=== PATIENT | female | born 1990 | race Two or more races ===

== ENCOUNTER 2024-03-19 04:27 | Emergency (ER) | payer MEDICAID, SELFPAY ==
[2024-03-19 04:28] VITALS: BMI 38.0
[2024-03-19 04:33] VITALS: BP 125/84; PULSE 81; RESP 19; TEMP 36.8; O2SAT 99
--- NOTE | 2024-03-19 04:45 | XR_ITS ---
Examination: Abdomen sonogram, Limited Date and time of exam: March 19, 2024 0536 hrs. Indications: Right upper abdominal pain beginning 3 days ago Technique: Real-time aguirre scale transabdominal sonographic images of the upper abdomen obtained. Findings: 12 mm gallbladder sludge ball Gallbladder wall 0.37 cm Common bile duct 0.2 cm Pancreatic head 2.8 cm Liver 16.2 cm fatty infiltration no focal liver lesions Normal hepatopedal portal venous flow Patent IVC Impression: Negative for cholelithiasis, 12 mm gallbladder sludge ball is present Borderline thickening gallbladder wall 0.37 cm, clinical correlation advised, consider HIDA scan or MRCP follow-up
--- NOTE | 2024-03-19 04:46 | PD.EDRME ---
Rapid Medical Screening Exam PENDING SALE TO [facility] Arrival date/time: 03/19/24 04:27 33F with no significant PMH presents to ED with 3 days of RUQ/epigastric pain that is possibly burning in nature. Chief Complaint: Abdominal Pain Vital signs: Vital Signs Temperature 98.2 F 03/19/24 04:33 Pulse Rate 81 03/19/24 04:33 Respiratory Rate 19 03/19/24 04:33 Blood Pressure 125/84 03/19/24 04:33 Pulse Oximetry (%) 99 03/19/24 04:33 Oxygen Delivery Method Room Air 03/19/24 04:33
[2024-03-19] MEDS: MG HYD/AL HYD/SIME (Maalox Reg) SUSP 30 ML UDC PO (04:54)
[2024-03-19] MEDS: FAMOTIDINE 20 MG TABLET 40 MG PO (04:54)
[2024-03-19 04:56] LABS: HCG Qualitative,Urine Negative
[2024-03-19 05:15] LABS: Basophils % (Auto) 0 % (0-2.5); Eosinophils # (Auto) 0.2 Thou/mm3 (0.0-0.5); Eosinophils % (Auto) 2 % (0-10); Hematocrit 41.3 % (36.0-46.0); Hemoglobin 13.6 g/dL (12.0-16.0); Immature Granulocytes % (Auto) 0 % (0-0); Immature Granulocytes Auto 0.01 Thou/mm3 (0.00-0.00); Lymphocytes % (Auto) 22 % (10-50); Mean Corpuscular HGB Conc 32.9 g/dl (31.0-37.0); Mean Corpuscular Hemoglobin 27.4 pg (25.0-35.0); Mean Corpuscular Volume 83 fL (80-100); Monocytes # (Auto) 0.6 Thou/mm3 (0.0-0.8); Monocytes % (Auto) 6 % (0-12); Neutrophils # (Auto) 6.2 Thou/mm3 (1.8-7.7); Neutrophils % (Auto) 70 % (37-80); Nucleated Red Blood Cell % 0 /100 WBC (0); Platelet Count 423 Thou/mm3 (140-440); RDW Standard Deviation 39.5 fL (36.4-46.3); Red Blood Count 4.96 Miln/mm3 (4.00-5.20)
[2024-03-19 05:29] LABS: Alanine Aminotransferase 24 U/L (10-49); Albumin, Serum 4.5 gm/dL (3.5-5.0); Albumin/Globulin Ratio 1.5 (1.2-2.2); Alkaline Phosphatase 73 U/L (46-116); Anion Gap 7 (7-16); Aspartate Amino Transferase 20 U/L (0-34); BUN/Creatinine Ratio 11 Ratio (12-20); Bilirubin,Total 0.3 mg/dL (0.3-1.2); Blood Urea Nitrogen 9 mg/dL (9-23); Calcium 9.3 mg/dL (8.3-10.6); Calcium (Corrected) 9.3 mg/dL (8.5-10.1); Carbon Dioxide 26.1 mMol/L (20.0-31.0); Chloride 102 mMol/L (98-107); Creatinine (Component) 0.8 mg/dL (0.6-1.3); Estimated Creatinine Clearance 113.3 mL/min (>60); Globulin 3.1 gm/dL (2.3-3.5); Glucose 140 mg/dL (74-106); Lipase 45 U/L (12-53); Osmolality,Calculated 270 (275-295); Potassium 3.8 mMol/L (3.4-5.1); Sodium 135 mMol/L (136-145); Total Protein 7.6 gm/dL (5.7-8.2); eGFR > 60 See Note
--- NOTE | 2024-03-19 07:16 | PC.NURSE ---
Pt. asked if US results were in yet and informed pt. no report yet at this time.
--- NOTE | 2024-03-19 07:32 | PD.EDABDPN ---
ED Abdominal Pain RME/HPI General Chief Complaint: Abdominal Pain Stated complaint: UPPER ABDOMINAL PAIN Time seen by provider: 03/19/24 07:07 Arrival date/time: 03/19/24 04:27 33-year-old female approximately 5 months presents the emergency department complains of epigastric abdominal pain patient reports no fever nausea or vomiting Limitations: no limitations RME / HPI RME / HPI narrative: 03/19/24 04:27 33F with no significant PMH presents to ED with 3 days of RUQ/epigastric pain that is possibly burning in nature. Related Data Home Medications ?Medication ?Instructions ?Recorded ?Confirmed vitamins-iron fumarate 27 1 tab PO QDAY 06/15/19 08/29/23 mg iron-folic acid 0.8 mg tablet ( Vitamin) Previous Rx's ?Medication ?Instructions ?Recorded ibuprofen 800 mg tablet 800 mg PO TID PRN pain #30 tabs 03/19/24 metoclopramide HCl 10 mg tablet 10 mg PO Q6H PRN nausea and 03/19/24 (Reglan) vomiting #30 tabs Allergies Allergy/AdvReac Type Severity Reaction Status Date / Time No Known Allergies Allergy Verified 08/29/23 19:08 Review of Systems Review of Systems Systems Reviewed: All systems reviewed, normal except as documented Constitutional Constitutional: Reports system reviewed and no additional complaints, except as documented, Denies fever(s) and Denies headache(s) Eyes Eyes: Reports system reviewed and no additional complaints, except as documented and Denies blurry vision ENT Ears, Nose, Mouth, and Throat: Reports system reviewed and no additional complaints, except as documented, Denies headache(s), Denies nasal congestion and Denies nasal discharge Cardiovascular Cardiovascular: Reports system reviewed and no additional complaints, except as documented, Denies chest pain and Denies dyspnea Respiratory Respiratory: Reports system reviewed and no additional complaints, except as documented, Denies chest congestion, Denies cough and Denies dyspnea Gastrointestinal Gastrointestinal: Reports system reviewed and no additional complaints, except as documented, Reports abdominal pain, Denies nausea and Denies vomiting Integumentary/Breasts Skin/Breast: Reports system reviewed and no additional complaints, except as documented and Denies rash Neurologic Neurologic: Reports system reviewed and no additional complaints, except as documented, Reports as per HPI and Denies headache(s) Past Medical History Past Medical History NEUROLOGIC: Negative Neurological Disorders CARDIAC: Negative Cardiac Disorders or Congestive Heart Failure RESPIRATORY: Negative Chronic Obstructive Pulmonary Disease (COPD) GASTROINTESTINAL: Negative Gastrointestinal Disorders, Hepatitis or Colorectal Cancer GENITOURINARY: Negative Genitourinary Disorders, Renal Disease or Prostate Cancer REPRODUCTIVE: Negative Breast Cancer or Testicular Cancer MUSCULOSKELETAL: Negative Musculoskeletal Disorders or Bone Cancer ENDOCRINE: Negative Endocrine Disorders, Diabetes Mellitus Type 1 or Diabetes Mellitus Type 2 HEMATOLOGIC: Negative Blood Disorders OTHER HISTORY: Negative Hospitalization, Autoimmune Disease, Down Syndrome, Developmental Delay, Shingles, Falls, Blood Transfusions, Blood Transfusion Reaction, Anesthesia Reactions, Organ Transplant, Chemotherapy, Radiation Therapy, Hyperbaric Therapy, MRSA, VRSA, Vancomycin-Resistant Enterococci, Human Immunodeficiency Virus (HIV), Chicken Pox, Measles, Mumps, Rubella (Malaysian Measles), Pertussis, Clostridium Difficile, Cancer, Breast Cancer, Cervical Cancer, Colorectal Cancer, Lung Cancer, Ovarian Cancer, Prostate Cancer or Testicular Cancer Family History FAMILY HISTORY: Positive Family Cardiac Disorders (mother and father high blood pressure); Negative Family Psychiatric Problems, Family Respiratory Disorders, Family Gastrointestinal Problems, Family Cancer, Family Surgery or Family Anesthesia Reaction Surgical History SURGICAL: Negative Section or Organ Transplant Social History SMOKING STATUS: Never smoker ED Exam General Limitations: Present no limitations General appearance: Present alert and in no apparent distress Head Head exam: Present atraumatic Eye Eye exam: Present normal appearance, PERRL and EOMI; Absent conjunctival injection ENT ENT exam: Present normal exam, normal oropharynx and mucous membranes moist Neck Neck exam: Present normal inspection, full ROM and trachea midline Chest Chest inspection: Present normal inspection and symmetric chest wall rise Respiratory Respiratory exam: Present normal lung sounds bilaterally; Absent respiratory distress Cardiovascular Cardiovascular exam: Present regular rate, normal rhythm and normal heart sounds Abdominal Exam Abdominal exam: Present soft, tenderness and normal bowel sounds; Absent distention, guarding, rebound, rigidity or Victor's sign Abdominal tenderness: Present epigastrium and mild; Absent RUQ Extremities Exam Extremities exam: Present normal inspection and full ROM Back Exam Back exam: Present normal inspection and full ROM Neurological Exam Neurological exam: Present alert, oriented X3 and CN II-XII intact Psychiatric Psychiatric exam: Present normal affect and normal mood Skin Skin exam: Present warm, dry, intact and normal color Course Quality Measures none Orders Category Date Time Status US gall bladder Stat Exams 03/19/24 04:45 Completed CBC Stat Lab 03/19/24 04:55 Completed CMP [Comprehensive Metabolic Panel] Stat Lab 03/19/24 04:55 Completed HCG Qualitative,Urine Stat Lab 03/19/24 04:50 Completed Lipase Stat Lab 03/19/24 04:55 Completed Famotidine [Pepcid] Med 03/19/24 04:45 Discontinued 40 mg PO X1 ONE mg Hyd/Al Hyd/Karlos Susp [Maalox Susp] Med 03/19/24 04:45 Discontinued 30 ml PO X1 ONE Vital Signs Vital signs: Vital Signs Temperature 98.2 F 03/19/24 04:33 Pulse Rate 81 03/19/24 04:33 Respiratory Rate 19 03/19/24 04:33 Blood Pressure 125/84 03/19/24 04:33 Pulse Oximetry (%) 99 03/19/24 04:33 Oxygen Delivery Method Room Air 03/19/24 04:33 O2 saturation 99% room air within normal limits Abdominal Pain MDM MDM Narrative MDM Narrative:: 33-year-old female approximately 5 months presents the emergency department complains of epigastric abdominal pain patient reports no fever nausea or vomiting On exam patient well-appearing patient does not appear ill or toxic patient does have tenderness in epigastrium and mild right upper quadrant on palpation Lab work as well as ultrasound obtained Lab work unremarkable ultrasound Findings: 12 mm gallbladder sludge ball Gallbladder wall 0.37 cm Common bile duct 0.2 cm Pancreatic head 2.8 cm Liver 16.2 cm fatty infiltration no focal liver lesions Normal hepatopedal portal venous flow Patent IVC Impression: Negative for cholelithiasis, 12 mm gallbladder sludge ball is present Borderline thickening gallbladder wall 0.37 cm, clinical correlation advised, consider HIDA scan or MRCP follow-up Discussed findings with my attending physician as the patient has no white count symptoms are mild patient has no vomiting liver enzymes are normal patient be discharged home to follow-up on an outpatient basis for referral to general surgeon Patient is aware that if her symptoms persist or worsen to return for further evaluation and treatment Patient data External records reviewed:: [facility] previous records Clinical information provided by:: patient Social determinants that could affect healthcare access:: none Patient has the following chronic illnesses:: None How is presenting disease/condition affected by chronic disease/condition?: no chronic disease Evaluation data The following diagnostics were reviewed and interpreted by me:: lab results and radiology exam(s) Lab and/or radiology exams considered but not ordered:: Labs radiology obtained Interpretation Summary: Reviewed by me Medications / Prescriptions Medications or Prescriptions considered but not ordered:: Given Medication administrations:: Medication Administration History Discontinued Medications Al Hydrox/Mg Hydrox/Simethicone (Mg Hyd/Al Hyd/Karlos (Maalox Reg) Susp 30 Ml Udc) 30 ml PO X1 ONE Stop: 03/19/24 04:46 Last Admin: 03/19/24 04:54 Dose: 30 ml Documented By: SE Famotidine (Famotidine 20 Mg Tablet) 40 mg PO X1 ONE Stop: 03/19/24 04:46 Last Admin: 03/19/24 04:54 Dose: 40 mg Documented By: SE Given Consultations Consultation(s) initiated? (list below): No Diagnosis Differential diagnosis abdominal pain: abdominal pain, calculus of kidney, diverticulitis, endometriosis, gastroenteritis, pancreatitis and small bowel obstruction Most likely diagnosis given after review of the tests above:: Abdominal pain Admission Indicated Admission indicated?: not indicated Admission Request Was there a request for admission?: No Disposition Plan Disposition Plan: Discharge Discharge Attestation Discharge Attestation: The patient and all family members were given an opportunity to ask questions and understood the discharge instructions. Discharge instructions specifically effects, indications for sooner follow up or return to the emergency department, and the expected course of current diagnosis. Patient condition: Stable Discharge Plan Plan Patient Disposition: HOME (Self Care) Disposition Comment: Stable Prescriptions/Referrals Prescriptions/Med Rec: New ibuprofen 800 mg tablet 800 mg PO TID PRN (Reason: pain) Qty: 30 0RF metoclopramide HCl [Reglan] 10 mg tablet 10 mg PO Q6H PRN (Reason: nausea and vomiting) Qty: 30 0RF No Action Vitamin 27 mg iron- 0.8 mg Tablet 1 tab PO QDAY Referrals: Tee Mena MD [Primary Care Provider] - In 1 week Problem List Clinical Impression: Gallbladder sludge, Abdominal pain Patient/Caregiver Discharge Instructions Education Materials: Abdominal Pain Additional Instructions: Please follow up with your primary care doctor in the next 24-48hrs in order get a referral to general surgeon for any worsening symptoms return here immediately Print Language: East Timorese Stand Alone Forms: Skye Award Info., Patient Portal Info Letter MD Attestation Attestation The patient was seen by the midlevel practitioner. I, the co-signing physician, was present during the entire ER visit. While I did not physically examine the patient, I was available for consultation as needed.
[2024-03-19 07:36] VITALS: BP 122/87; PULSE 82; RESP 18; TEMP 37; O2SAT 98
== END 2024-03-19 07:48 | disposition home or self-care (01) ==
PROVIDERS: Physician Assistant; Emergency Provider Emergency Medicine; PCP Family Medicine
DX: K82.8 Other specified diseases of gallbladder (principal)
CPT/HCPCS: 36415; 76705; 80053; 81025; 83690; 85025; 99284; A9270

== ENCOUNTER 2024-03-31 19:19 | Emergency (ER) | payer MEDICAID, SELFPAY ==
[2024-03-31 19:19] VITALS: BMI 35.4
[2024-03-31 20:03] VITALS: BP 130/81; PULSE 74; RESP 18; TEMP 37.1; O2SAT 97
--- NOTE | 2024-03-31 20:09 | PD.EDRME ---
Rapid Medical Screening Exam RME Arrival date/time: 03/31/24 19:19 33-year-old female past medical history of gallstones presents emergency department complaining of right upper quadrant abdominal pain with nausea and vomiting that started earlier today. Chief Complaint: Abdominal Pain Time Seen by Provider: 03/31/24 20:05 Vital signs: Vital Signs Temperature 98.7 F 03/31/24 20:03 Pulse Rate 74 03/31/24 20:03 Respiratory Rate 18 03/31/24 20:03 Blood Pressure 130/81 03/31/24 20:03 Pulse Oximetry (%) 97 03/31/24 20:03 Oxygen Delivery Method Room Air 03/31/24 20:03 Vital signs reviewed by provider: Yes
[2024-03-31] MEDS: FAMOTIDINE 20 MG TABLET 40 MG PO (20:13)
[2024-03-31] MEDS: MG HYD/AL HYD/SIME (Maalox Reg) SUSP 30 ML UDC PO (20:14)
[2024-03-31 20:31] LABS: Basophils % (Auto) 0 % (0-2.5); Eosinophils % (Auto) 0 % (0-10); Hemoglobin 13.6 g/dL (12.0-16.0); Immature Granulocytes % (Auto) 0 % (0-0); Immature Granulocytes Auto 0.03 Thou/mm3 (0.00-0.00); Lymphocytes % (Auto) 7 % (10-50); Mean Corpuscular HGB Conc 33.2 g/dl (31.0-37.0); Mean Corpuscular Hemoglobin 27.4 pg (25.0-35.0); Mean Corpuscular Volume 83 fL (80-100); Monocytes # (Auto) 0.6 Thou/mm3 (0.0-0.8); Monocytes % (Auto) 4 % (0-12); Neutrophils % (Auto) 88 % (37-80); Nucleated Red Blood Cell % 0 /100 WBC (0); Platelet Count 401 Thou/mm3 (140-440); RDW Standard Deviation 39.8 fL (36.4-46.3); Red Blood Count 4.96 Miln/mm3 (4.00-5.20); White Blood Count 14.7 Thou/mm3 (3.6-11.0)
[2024-03-31 20:38] LABS: HCG,Qualitative Serum Negative
[2024-03-31 20:47] LABS: Alanine Aminotransferase 136 U/L (10-49); Albumin, Serum 4.6 gm/dL (3.5-5.0); Albumin/Globulin Ratio 1.5 (1.2-2.2); Alkaline Phosphatase 108 U/L (46-116); Anion Gap 8 (7-16); Aspartate Amino Transferase 243 U/L (0-34); BUN/Creatinine Ratio 11 Ratio (12-20); Bilirubin,Total 0.7 mg/dL (0.3-1.2); Blood Urea Nitrogen 8 mg/dL (9-23); Calcium 9.3 mg/dL (8.3-10.6); Calcium (Corrected) 9.3 mg/dL (8.5-10.1); Carbon Dioxide 26.2 mMol/L (20.0-31.0); Chloride 101 mMol/L (98-107); Creatinine (Component) 0.7 mg/dL (0.6-1.3); Estimated Creatinine Clearance 124.5 mL/min (>60); Glucose 140 mg/dL (74-106); Lipase 29 U/L (12-53); Osmolality,Calculated 270 (275-295); Sodium 135 mMol/L (136-145); Total Protein 7.6 gm/dL (5.7-8.2); eGFR > 60 See Note
--- NOTE | 2024-03-31 20:50 | XR_ITS ---
Examination: Abdomen sonogram, Limited Date and time of exam: March 31, 2024 2056 hrs. Indications: Onset right upper abdominal pain nausea vomiting today Technique: Real-time aguirre scale transabdominal sonographic images of the upper abdomen obtained. Findings: Gallbladder sludge ball No gallstones Gallbladder wall 0.3 cm no edema Common bile duct 0.4 cm Pancreas obscured by bowel gas Liver 17.7 cm lobular contour fatty infiltration No focal liver lesions Normal hepatopedal portal venous flow Patent IVC Impression: Gallbladder sludge ball, negative for cholelithiasis, negative for cholecystitis Mild hepatomegaly fatty liver, primary hepatocellular disease versus cirrhosis
[2024-03-31 20:53] LABS: Collection Type, Urine Clean Catch
[2024-03-31 21:03] LABS: Bacteria,Urine Rare; Bilirubin,Urine Negative (Negative); Blood,Urine Negative (Negative); Clarity,Urine Clear (Clear/Hazy); Color,Urine Yellow (Lt Yel-Yel); Culture Indicated,Urine Not Indicated; Glucose, Urine Negative (Negative); Ketones,Urine Negative (Negative); Leukocyte Esterase,Urine Positive (Negative); Nitrite,Urine Negative (Negative); Protein,Urine Negative (Neg - Trace); RBC,Urine 1 /hpf (0-3); Squamous Epithelial Cell,Urine 2 /hpf (0-5); Urobilinogen,Urine Negative mg/dL (0.0-1.0); WBC,Urine 4 /hpf (0-5)
--- NOTE | 2024-03-31 22:40 | EDNOTE_ITS ---
ED Abdominal Pain RME/HPI General Chief Complaint: Abdominal Pain Stated complaint: GALLBLADDER PAIN Time seen by provider: 03/31/24 20:05 Arrival date/time: 03/31/24 19:19 33-year-old female past medical history of gallstones presents emergency department complaining of right upper quadrant abdominal pain with nausea and vomiting that started earlier today. Patient denies any fever, chills, diarrhea, or any other associated symptom. Source: patient Mode of arrival: ambulatory Limitations: no limitations RME / HPI RME / HPI narrative: 03/31/24 19:19 33-year-old female past medical history of gallstones presents emergency department complaining of right upper quadrant abdominal pain with nausea and vomiting that started earlier today. Related Data Home Medications ?Medication ?Instructions ?Recorded ?Confirmed vitamins-iron fumarate 27 1 tab PO QDAY 06/15/19 08/29/23 mg iron-folic acid 0.8 mg tablet ( Vitamin) Previous Rx's ?Medication ?Instructions ?Recorded ibuprofen 800 mg tablet 800 mg PO TID PRN pain #30 tabs 03/19/24 metoclopramide HCl 10 mg tablet 10 mg PO Q6H PRN nausea and 03/19/24 (Reglan) vomiting #30 tabs Allergies Allergy/AdvReac Type Severity Reaction Status Date / Time No Known Allergies Allergy Verified 03/31/24 19:21 Review of Systems Review of Systems Systems Reviewed: All systems reviewed, normal except as documented Constitutional Constitutional: Reports system reviewed and no additional complaints, except as documented, Denies body ache(s), Denies chills and Denies fever(s) Eyes Eyes: Reports system reviewed and no additional complaints, except as documented and Denies change in vision ENT Ears, Nose, Mouth, and Throat: Reports system reviewed and no additional complaints, except as documented, Denies disequilibrium, Denies dizziness, Denies sore throat and Denies vertigo Cardiovascular Cardiovascular: Reports system reviewed and no additional complaints, except as documented, Denies chest pain and Denies dyspnea Respiratory Respiratory: Reports system reviewed and no additional complaints, except as documented, Denies chest congestion, Denies cough and Denies dyspnea Gastrointestinal Gastrointestinal: Reports system reviewed and no additional complaints, except as documented, Reports abdominal pain, Reports nausea and Reports vomiting Musculoskeletal Musculoskeletal: Reports system reviewed and no additional complaints, except as documented, Denies abnormal gait and Denies arthralgias Integumentary/Breasts Skin/Breast: Reports system reviewed and no additional complaints, except as documented, Denies erythema, Denies rash and Denies wounds Neurologic Neurologic: Reports system reviewed and no additional complaints, except as documented, Denies abnormal gait, Denies disequilibrium, Denies dizziness and Denies vertigo Past Medical History Past Medical History NEUROLOGIC: Negative Neurological Disorders CARDIAC: Negative Cardiac Disorders or Congestive Heart Failure RESPIRATORY: Negative Chronic Obstructive Pulmonary Disease (COPD) GASTROINTESTINAL: Negative Gastrointestinal Disorders, Hepatitis or Colorectal Cancer GENITOURINARY: Negative Genitourinary Disorders, Renal Disease or Prostate Cancer REPRODUCTIVE: Negative Breast Cancer or Testicular Cancer MUSCULOSKELETAL: Negative Musculoskeletal Disorders or Bone Cancer ENDOCRINE: Negative Endocrine Disorders, Diabetes Mellitus Type 1 or Diabetes Mellitus Type 2 HEMATOLOGIC: Negative Blood Disorders OTHER HISTORY: Negative Hospitalization, Autoimmune Disease, Down Syndrome, Developmental Delay, Shingles, Falls, Blood Transfusions, Blood Transfusion Reaction, Anesthesia Reactions, Organ Transplant, Chemotherapy, Radiation Therapy, Hyperbaric Therapy, MRSA, VRSA, Vancomycin-Resistant Enterococci, Human Immunodeficiency Virus (HIV), Chicken Pox, Measles, Mumps, Rubella ([place]yrgy[place] Measles), Pertussis, Clostridium Difficile, Cancer, Breast Cancer, Cervical Cancer, Colorectal Cancer, Lung Cancer, Ovarian Cancer, Prostate Cancer or Testicular Cancer Family History FAMILY HISTORY: Positive Family Cardiac Disorders (mother and father high blood pressure); Negative Family Psychiatric Problems, Family Respiratory Disorders, Family Gastrointestinal Problems, Family Cancer, Family Surgery or Family Anesthesia Reaction Surgical History SURGICAL: Negative Section or Organ Transplant Social History SMOKING STATUS: Never smoker ED Exam General Limitations: Present no limitations General appearance: Present alert and in no apparent distress Head Head exam: Present atraumatic Eye Eye exam: Present normal appearance, PERRL and EOMI ENT ENT exam: Present normal exam, normal oropharynx and mucous membranes moist Neck Neck exam: Present normal inspection, full ROM and trachea midline Chest Chest inspection: Present normal inspection and symmetric chest wall rise Respiratory Respiratory exam: Present normal lung sounds bilaterally Cardiovascular Cardiovascular exam: Present regular rate, normal rhythm and normal heart sounds Abdominal Exam Abdominal exam: Present soft, tenderness and normal bowel sounds Abdominal tenderness: Present RUQ Extremities Exam Extremities exam: Present normal inspection and full ROM Back Exam Back exam: Present normal inspection and full ROM Neurological Exam Neurological exam: Present alert, oriented X3 and CN II-XII intact Psychiatric Psychiatric exam: Present normal affect and normal mood Skin Skin exam: Present warm, dry, intact and normal color Course Quality Measures none Orders Category Date Time Status US gall bladder Stat Exams 03/31/24 20:50 Completed CBC Stat Lab 03/31/24 20:11 Completed CMP [Comprehensive Metabolic Panel] Stat Lab 03/31/24 20:11 Completed HCG,Qualitative Serum Stat Lab 03/31/24 20:11 Completed Lipase Stat Lab 03/31/24 20:11 Completed Urinalysis, C/S if Indicated Stat Lab 03/31/24 20:33 Completed Famotidine [Pepcid] Med 03/31/24 20:08 Discontinued 40 mg PO X1 ONE mg Hyd/Al Hyd/Karlos Susp [Maalox Susp] Med 03/31/24 20:09 Discontinued 30 ml PO X1 ONE Vital Signs Vital signs: Vital Signs Temperature 98.7 F 03/31/24 20:03 Pulse Rate 74 03/31/24 20:03 Respiratory Rate 18 03/31/24 20:03 Blood Pressure 130/81 03/31/24 20:03 Pulse Oximetry (%) 97 03/31/24 20:03 Oxygen Delivery Method Room Air 03/31/24 20:03 7% room air within normal limits Abdominal Pain MDM MDM Narrative MDM Narrative:: 33-year-old female past medical history of gallstones presents emergency department complaining of right upper quadrant abdominal pain with nausea and vomiting that started earlier today. Patient denies any fever, chills, diarrhea, or any other associated symptom. CBC was remarkable for leukocytosis 14.7. CMP elevated AST to 43 ALT 136 with normal total bili. Ultrasound gallbladder findings gallbladder sludge ball with no gallstones and gallbladder wall no edema with common bile duct measuring 0.[address] Goodman general surgeon consulted and reported discharge patient home with pain medication and follow-up with her for possible surgical intervention on Sunday scheduled outpatient. Patient appears nontoxic and stable for discharge. Patient discharged and instructed she will be receiving call from Dr. Hollingsworth's office to schedule visit and possible surgical intervention. Instructed patient to return sooner to emergency department for any worsening symptoms or as needed. Patient data External records reviewed:: [facility] previous records Clinical information provided by:: patient Social determinants that could affect healthcare access:: none Patient has the following chronic illnesses:: N/A How is presenting disease/condition affected by chronic disease/condition?: no chronic disease Evaluation data The following diagnostics were reviewed and interpreted by me:: lab results and radiology exam(s) Lab and/or radiology exams considered but not ordered:: Ordered Interpretation Summary: Interpreted by me Medications / Prescriptions Medications or Prescriptions considered but not ordered:: Ordered Medication administrations:: Medication Administration History Discontinued Medications Al Hydrox/Mg Hydrox/Simethicone (Mg Hyd/Al Hyd/Karlos (Maalox Reg) Susp 30 Ml Udc) 30 ml PO X1 ONE Stop: 03/31/24 20:10 Last Admin: 03/31/24 20:14 Dose: 30 ml Documented By: OA Famotidine (Famotidine 20 Mg Tablet) 40 mg PO X1 ONE Stop: 03/31/24 20:09 Last Admin: 03/31/24 20:13 Dose: 40 mg Documented By: OA Given Consultations Consultation(s) initiated? (list below): Yes Consultation #1 (Physician, Specialty, Details): Dr Goodman Diagnosis Differential diagnosis abdominal pain: abdominal pain, acute appendicitis, calculus of kidney, constipation, diverticulitis, endometriosis, gastroenteritis and pancreatitis Most likely diagnosis given after review of the tests above:: Gallbladder sludge Admission Indicated Admission indicated?: not indicated Admission Request Was there a request for admission?: No Disposition Plan Disposition Plan: Discharge Discharge Attestation Discharge Attestation: The patient and all family members were given an opportunity to ask questions and understood the discharge instructions. Discharge instructions specifically effects, indications for sooner follow up or return to the emergency department, and the expected course of current diagnosis. Patient condition: Stable Discharge Plan Plan Patient Disposition: HOME (Self Care) Disposition Comment: Stable Prescriptions/Referrals Prescriptions/Med Rec: No Action Vitamin 27 mg iron- 0.8 mg Tablet 1 tab PO QDAY ibuprofen 800 mg tablet 800 mg PO TID PRN (Reason: pain) Qty: 30 0RF metoclopramide HCl [Reglan] 10 mg tablet 10 mg PO Q6H PRN (Reason: nausea and vomiting) Qty: 30 0RF Referrals: Tee Mena MD [Primary Care Provider] - In 1 week Anne Marie Goodman MD [Physician] - 04/04/24 9:00 am (Dr. Goodman office will call you for appointment. ) Problem List Clinical Impression: Gallbladder sludge Patient/Caregiver Discharge Instructions Discharge Activity: activity as tolerated Additional Instructions: . Take pain medication as needed. Follow-up with Dr. Hollingsworth as discussed. Return to the emergency department for any worsening symptoms or as needed. Print Language: Mongolian Stand Alone Forms: Skye Award Info., Patient Portal Info Letter PA/HUMAN RESOURCE STATISTICIAN Supervising Physician PA/HUMAN RESOURCE STATISTICIAN Supervising Physician: Dr. Adkins
--- NOTE | 2024-04-01 14:32 | PD.SURCONS ---
HPI Consult details History of present illness: 33F with a history of biliary colic who presented with abdominal pain and nausea. Pt reports pain was severe and similar to her previous episode; workup is consistent with biliary colic without signs of cholecystitis Review of Systems Review of Systems ROS Unobtainable: All systems reviewed & no additional complaints except as documented ENT Ears, Nose, Mouth, and Throat: Denies disequilibrium, Denies dizziness and Denies vertigo Musculoskeletal Musculoskeletal: Denies abnormal gait Neurologic Neurologic: Reports system reviewed and no additional complaints, except as documented, Denies abnormal gait, Denies disequilibrium, Denies dizziness and Denies vertigo Meds Home Medications and Allergies Home Medications ?Medication ?Instructions ?Recorded ?Confirmed ?Type vitamins-iron fumarate 27 1 tab PO QDAY 06/15/19 08/29/23 History mg iron-folic acid 0.8 mg tablet ( Vitamin) Allergies Allergy/AdvReac Type Severity Reaction Status Date / Time No Known Allergies Allergy Verified 03/31/24 19:21 Exam Vital Signs Temp Pulse Resp BP Pulse Ox O2 Del Method 98.7 F 74 18 130/81 97 Room Air 03/31/24 20:03 03/31/24 20:03 03/31/24 20:03 03/31/24 20:03 03/31/24 20:03 03/31/24 20:03 Constitutional Constitutional: no acute distress Routine Respiratory Exam Respiratory: Present no resp distress Routine Abdominal Exam Abdominal: Present soft; Absent tenderness or distended Results Results: Laboratory Laboratory results: results reviewed Results: Imaging US - abdomen: report reviewed Assessment & Plan Plan 33F presenting with biliary colic without signs of cholecystitis Follow up as outpt
== END 2024-03-31 22:45 | disposition home or self-care (01) ==
PROVIDERS: Emergency Provider Emergency Medicine; PCP Family Medicine
DX: K82.8 Other specified diseases of gallbladder (principal)
CPT/HCPCS: 36415; 76705; 80053; 81001; 83690; 84703; 85025; 99284; A9270

== ENCOUNTER 2024-04-02 13:31 | Outpatient (AMB) | payer MEDICAID, SELFPAY ==
[2024-04-02 13:52] VITALS: BP 123/87; PULSE 69; RESP 18; TEMP 36.3; O2SAT 97; BMI 40.3
--- NOTE | 2024-04-02 13:52 | GSCOFFNT_ITS ---
Vital Signs - [facility] 04/02/24 13:52 Height 1.6 m Height Method Stated Weight 103.192 kg Weight Measurement Method Standing Scale BMI 40.3 BP 123/87 H Blood Pressure Source Automatic Cuff Blood Pressure Location Right Upper Arm Position Sitting Respiration 18 Pulse 69 Pulse Source Monitor Temp 97.3 F Temp Source Temporal Artery Scan Pulse Oximetry (%) 97 Oxygen Delivery Method Room Air Med/Allergies Allergies & Medications Allergies No Known Allergies Allergy (Verified 04/02/24 13:53) Medication Reconciliation vitamins-iron fumarate 27 mg iron-folic acid 0.8 mg tablet ( Vitamin) 1 tab PO QDAY 06/15/19 [History Confirmed 04/02/24] ibuprofen 800 mg tablet 800 mg PO TID PRN pain #30 tabs 03/19/24 [Rx Confirmed 04/02/24] metoclopramide HCl 10 mg tablet (Reglan) 10 mg PO Q6H PRN nausea and vomiting #30 tabs 03/19/24 [Rx Confirmed 04/02/24] MA Intake Visit Data Collection New Patient or Established: Established Patient (seen at [facility] within 3 years) Reason for Visit:: ER FOLLOW UP Pain Present Currently: Yes Pain Location: Abdomen Pain scale:: 5 PCP or OBGYN visit in last 3 months: Yes Smoking Status Smoking Status: Never smoker Immunization / Flu Flu Vaccine in the Last 12 Months: No Flu Vaccine Exclusion Criteria: No Exclusion Criteria Past Medical History Past Medical History NEUROLOGIC: Negative Neurological Disorders CARDIAC: Negative Cardiac Disorders or Congestive Heart Failure RESPIRATORY: Negative Chronic Obstructive Pulmonary Disease (COPD) GASTROINTESTINAL: Negative Gastrointestinal Disorders, Hepatitis or Colorectal Cancer GENITOURINARY: Negative Genitourinary Disorders, Renal Disease or Prostate Cancer REPRODUCTIVE: Negative Breast Cancer or Testicular Cancer MUSCULOSKELETAL: Negative Bone Cancer ENDOCRINE: Negative Endocrine Disorders, Diabetes Mellitus Type 1 or Diabetes Mellitus Type 2 HEMATOLOGIC: Negative Blood Disorders OTHER HISTORY: Negative Hospitalization, Down Syndrome, Developmental Delay, Shingles, Falls, Blood Transfusions, Blood Transfusion Reaction, Anesthesia Reactions, Organ Transplant, Chemotherapy, Radiation Therapy, Hyperbaric Therapy, MRSA, VRSA, Vancomycin-Resistant Enterococci, Human Immunodeficiency Virus (HIV), Chicken Pox, Measles, Mumps, Rubella ([place] Measles), Pertussis, Clostridium Difficile, Cancer, Breast Cancer, Cervical Cancer, Colorectal Cancer, Lung Cancer, Ovarian Cancer, Prostate Cancer or Testicular Cancer Family History FAMILY HISTORY: Positive Family Cardiac Disorders (mother and father high blood pressure); Negative Family Psychiatric Problems, Family Respiratory Disorders, Family Gastrointestinal Problems, Family Cancer, Family Surgery or Family Anesthesia Reaction Surgical History SURGICAL: Negative Section or Organ Transplant Social History SMOKING STATUS: Smoking status: Never smoker ALCOHOL: Alcohol Intake: Never HOUSING: Housing: Apartment LIVES WITH: Lives With: Family HPI HPI Narrative 33F presenting with symptomatic cholelithiasis. Pt reports she began having pain during her earlier this year, severe in RUQ after eating, associated with nausea but no fever or diarrhea. Pt presented to ER on Sunday with findings of gallbladder sludge but no signs of cholecystitis PMH: None PSHx: None Meds: control Allergies: NKDA Social hx: Nonsmoker ROS Review of Systems Systems Reviewed: All systems reviewed, normal except as documented Objective/Exam General General Appearance: alert, cooperative and well groomed Resp Respiratory exam: Absent respiratory distress Abdominal Abdominal exam: Present soft; Absent distention or tenderness Results US reviewed Assessment & Plan Diagnosis / Problem List (1) Gallbladder sludge: Status: Acute Assessment & Plan: 33F with several-month history of cholelithiasis. I explained benefits/risks of surgery including need for conversion to open, bleeding, infection, and biliary leak/injury to nearby structures requiring further procedures or surgery (which would require transfer to another hospital). Pt expressed understanding and agrees to proceed Office Procedures GNS Level of Care Nursing/Assessment Patient Status: Established Patient Nursing Assessment/Reassesment: Medication Reconciliation, Update PMH in EMR and Vital Signs Coordination of Care: Complex Care and Chronic Disease 1-5, Education Complex Pt/Fam, Consent,records obtained, informed consent, 1 Ins Authorization, Results/Orders obtained and Staff clarify orders Established Patient Charge Established Patient Point Assignment: 110 Established Patient Point Charge: EP Level 3 (80-115) Patient Portal Questionaires Social History Living Situation History Housing: Apartment Tobacco History Smoking Status: Never smoker Alcohol History Alcohol Intake: Never Review of Systems Report any current symptoms Only answer those that you have currently: Past Medical History Past Medical History Have you ever been diagnosed with any of the following: Cardiology Problems Congestive Heart Failure: No Respiratory Problems Chronic Obstructive Pulmonary Disease (COPD): No Stomache/Intestinal Problems Hepatitis: No Colorectal Cancer: No Genital/Urinary Problems Renal Disease: No Prostate Cancer: No Reproductive Problems Breast Cancer: No Testicular Cancer: No Musculoskeletal Problems Bone Cancer: No Endocrine Problems Diabetes Mellitus Type 1: No Diabetes Mellitus Type 2: No Other Problems Hospitalization: No Down Syndrome: No Developmental Delay: No Shingles: No Falls: No Blood Transfusions: No Blood Transfusion Reaction: No Anesthesia Reactions: No Organ Transplant: No Chemotherapy: No Radiation Therapy: No Hyperbaric Therapy: No MRSA: No VRSA: No Vancomycin-Resistant Enterococci: No Human Immunodeficiency Virus (HIV): No Chicken Pox: No Measles: No Mumps: No Rubella ([place]ian Measles): No Pertussis: No Clostridium Difficile: No Cancer: No Cervical Cancer: No Lung Cancer: No Ovarian Cancer: No
== END 2024-04-02 14:13 | disposition home or self-care (01) ==
LOC: HODSRG 13:31
PROVIDERS: PCP Family Medicine; Referring Provider Family Medicine; Supervising Provider Surgery; Visit Provider Surgery
DX: K82.8 Other specified diseases of gallbladder (principal)
CPT/HCPCS: 99213; G0463

== ENCOUNTER 2024-04-04 14:23 | Emergency (ER) | payer MEDICAID, SELFPAY ==
[2024-04-04 14:38] VITALS: BP 131/83; PULSE 64; RESP 18; TEMP 36.7; O2SAT 97; BMI 39.4
--- NOTE | 2024-04-04 14:40 | PD.EDRME ---
Rapid Medical Screening Exam RME Arrival date/time: 04/04/24 14:23 Chief Complaint: Recheck/Abnormal Lab/Rx Time Seen by Provider: 04/04/24 14:28 Vital signs: Vital Signs Temperature 98.1 F 04/04/24 14:38 Pulse Rate 64 04/04/24 14:38 Respiratory Rate 18 04/04/24 14:38 Blood Pressure 131/83 H 04/04/24 14:38 Pulse Oximetry (%) 97 04/04/24 14:38 Oxygen Delivery Method Room Air 04/04/24 14:38 RME Narrative: Referred to ED by Dr. Goodman for MRCP Hx biliary colic with elevated bili of 2.8 this morning
--- NOTE | 2024-04-04 17:16 | PC.NURSE ---
Pt left and states she just wants to go home. Pt informed that there may be an issue with insurance paying if pt leaves AMA. per pt, That's ok. I would rather go home.
== END 2024-04-04 17:18 | disposition left against medical advice (07) ==
LOC: SERX 14:47
PROVIDERS: Emergency Provider Emergency Medicine; PCP Family Medicine
DX: E80.7 Disorder of bilirubin metabolism, unspecified (principal); Z53.29 Procedure and treatment not carried out because of patient's decision for other reasons
CPT/HCPCS: 99281

== ENCOUNTER → 2024-04-04 | Outpatient (CLI) | payer MEDICAID, SELFPAY ==
[2024-04-04 10:19] VITALS: BMI 39.4
[2024-04-04 11:48] LABS: Basophils % (Auto) 0 % (0-2.5); Eosinophils # (Auto) 0.1 Thou/mm3 (0.0-0.5); Eosinophils % (Auto) 2 % (0-10); Hemoglobin 13.5 g/dL (12.0-16.0); Immature Granulocytes % (Auto) 0 % (0-0); Immature Granulocytes Auto 0.01 Thou/mm3 (0.00-0.00); Lymphocytes % (Auto) 19 % (10-50); Mean Corpuscular HGB Conc 32.9 g/dl (31.0-37.0); Mean Corpuscular Hemoglobin 27.3 pg (25.0-35.0); Mean Corpuscular Volume 83 fL (80-100); Monocytes # (Auto) 0.4 Thou/mm3 (0.0-0.8); Monocytes % (Auto) 7 % (0-12); Neutrophils # (Auto) 3.8 Thou/mm3 (1.8-7.7); Neutrophils % (Auto) 71 % (37-80); Nucleated Red Blood Cell % 0 /100 WBC (0); Platelet Count 448 Thou/mm3 (140-440); RDW Standard Deviation 42.5 fL (36.4-46.3); Red Blood Count 4.94 Miln/mm3 (4.00-5.20); White Blood Count 5.4 Thou/mm3 (3.6-11.0)
[2024-04-04 11:57] LABS: Partial Thromboplastin Time 29.5 Seconds (22.0-36.0); Prothrombin Time 11.3 Seconds (9.0-12.2)
[2024-04-04 11:58] LABS: HCG Qualitative,Urine Negative
[2024-04-04 12:04] LABS: Alanine Aminotransferase 357 U/L (10-49); Albumin, Serum 4.5 gm/dL (3.5-5.0); Albumin/Globulin Ratio 1.5 (1.2-2.2); Alkaline Phosphatase 189 U/L (46-116); Anion Gap 7 (7-16); Aspartate Amino Transferase 138 U/L (0-34); BUN/Creatinine Ratio 9 Ratio (12-20); Bilirubin,Total 2.8 mg/dL (0.3-1.2); Blood Urea Nitrogen 7 mg/dL (9-23); Calcium 9.5 mg/dL (8.3-10.6); Calcium (Corrected) 9.5 mg/dL (8.5-10.1); Carbon Dioxide 25.8 mMol/L (20.0-31.0); Chloride 104 mMol/L (98-107); Creatinine (Component) 0.8 mg/dL (0.6-1.3); Estimated Creatinine Clearance 115.7 mL/min (>60); Glucose 203 mg/dL (74-106); Osmolality,Calculated 277 (275-295); Potassium 3.9 mMol/L (3.4-5.1); Sodium 137 mMol/L (136-145); Total Protein 7.5 gm/dL (5.7-8.2); eGFR > 60 See Note
--- NOTE | 2024-04-04 12:21 | SUR.PREOP ---
Liver enzymes and bili elevated, Dr Goodman notified and stated she will send pt to ER for testing.
--- NOTE | 2024-04-04 13:52 | SUR.PREOP ---
Pt notified to go ER, requested by Dr Goodman to do more testing due to elevated liver enzymes.
== END | disposition home or self-care (01) ==
LOC: SLAB 04-08 06:31
PROVIDERS: Anesthesiology; PCP Family Medicine; Referring Provider Surgery; Visit Provider Surgery
DX: K82.8 Other specified diseases of gallbladder (principal)
CPT/HCPCS: 36415; 80048; 80053; 81025; 82248; 85025; 85610; 85730